=== PATIENT | female | born 2005 | race Two or more races ===

== ENCOUNTER 2023-06-17 17:44 | Outpatient (CLI) | payer OTHER ==
[2023-06-17] MEDS ORDERED: ADULT LOW DOSE81 M1 (18:04)
[2023-06-17] MEDS ORDERED: PRENA1 TRUE CO1 EACH (18:04)
[2023-06-17] MEDS ORDERED: RINGERS SOLUTION,LACTATED 1,000 ML IV SCH (18:15)
== END 2023-06-18 18:33 | disposition home or self-care (01) ==
LOC: OBS/DEL 17:44
PROVIDERS: ATTEND Specialist
DX: O26.893 Other specified pregnancy related conditions, third trimester (principal); Z3A.39 39 weeks gestation of pregnancy; R10.2 Pelvic and perineal pain